=== PATIENT | female | born 1945 | race Caucasian/White ===

== ENCOUNTER 2017-03-18 19:42 | Emergency (ER) | payer OTHER ==
[~2017-03-18 19:42] MED LIST: MOBIC15 MG PO; TYLENOL PO
[2017-03-18 21:50] VITALS: BP 140/95
== END 2017-03-18 21:50 | disposition home or self-care (01) ==
LOC: ED 19:42
DX: R22.0 Localized swelling, mass and lump, head (principal); I10 Essential (primary) hypertension; L29.9 Pruritus, unspecified; E78.00 Pure hypercholesterolemia, unspecified; M19.90 Unspecified osteoarthritis, unspecified site; Z88.6 Allergy status to analgesic agent; T78.40XA Allergy, unspecified, initial encounter; X58.XXXA Exposure to other specified factors, initial encounter
CPT/HCPCS: J0171; J1200; J2930

== ENCOUNTER 2019-08-19 09:48 | Emergency (ER) | payer OTHER ==
[~2019-08-19] VITALS: Ht 167.6 cm; Wt 88.5 kg
[2019-08-19 09:59] VITALS: BP 124/76; Ht 167.6 cm; Wt 88.5 kg
== END 2019-08-19 11:33 | disposition home or self-care (01) ==
LOC: ED 09:48
DX: M25.562 Pain in left knee (principal); S83.32XA Tear of articular cartilage of left knee, current, initial encounter; E78.00 Pure hypercholesterolemia, unspecified; Z88.6 Allergy status to analgesic agent; X58.XXXA Exposure to other specified factors, initial encounter; Y93.89 Activity, other specified; Y92.89 Other specified places as the place of occurrence of the external cause; Y99.8 Other external cause status
CPT/HCPCS: Q0092